=== PATIENT | female | born 1960 | race Caucasian/White ===

== ENCOUNTER → 2018-04-01 | Outpatient (CLI) | payer BC | LOC: BRMIMAGING 10:01 | PROVIDERS: ATTEND Nurse Practitioner | DX: R59.0 Localized enlarged lymph nodes (principal); Z85.3 Personal history of malignant neoplasm of breast; Z90.12 Acquired absence of left breast and nipple; Z98.82 Breast implant status | CPT/HCPCS: 76641-PO ==